=== PATIENT | male | born 1965 | race African-American/Black ===

== ENCOUNTER → 2017-03-08 | Outpatient (CLI) | payer MEDICARE, OTHER ==
[~2017-03-08] MED LIST: ALDACTONE100 MG PO; EPCLUSA 400 MG1 EACH PO; LASIX PO; LISINOPRIL-HCTZ1 T16 PO; NEURONTIN600 MG PO; OMEPRAZOLE20 M1 PO
--- NOTE | ~2017-03-08 | US5 ---
[facility] A Service of [facility] RADIOLOGY TEXT RESULTS PATIENT: JAMAICA BAZAN LOCATION: [place] : 65 UNIT #: [id number] AGE: [address]: VALERIE DILLARD SEX: M ORDER DR: [id number] [place], [place] [address] [id number] O MR#: [id number] Acc #: [id number] NAME: JAMAICA BAZAN : 1965 SEX: M STUDY DATE/TIME: 03/08/2017 10:41 UNIT: CGUS ROOM: STUDY DESCRIPTION: US Abdominal Complete Attending Physician: Valerie Dillard M.D. Referring Physician: Valerie Dillard M.D. Ordering Physician: Physician Non-Staff Primary Care Physician: [facility] MEDICAL IMAGING REPORT This report is preliminary unless electronic signature is present EXAM Abdominal ultrasound. INDICATION Hepatitis C. Observation for cirrhosis and hepatocellular carcinoma. PROCEDURE Bosch-scale and Doppler imaging of the abdomen. COMPARISON 11/22/2016 FINDINGS Pancreas obscured by bowel gas. Cholelithiasis. No gallbladder wall thickening. Left kidney measures 10.1 cm. Spleen measures 9.6 cm. Right kidney measures 10.3 cm. No hydronephrosis. The liver measures 15.4 cm has coarsened echotexture. No liver mass seen on submitted images. Common duct measures 3-4 mm. Cholelithiasis with several stones in the gallbladder. Submitted images abdominal aorta and inferior vena cava unremarkable. IMPRESSION 1. Coarsened hepatic echotexture in keeping with cirrhosis. No liver mass seen by ultrasound. 2. Spleen is normal in size. 3. Cholelithiasis. Dictated by... Aubrey Khoury M.D. THIS IS AN ELECTRONICALLY VERIFIED REPORT [facility] A Service of [facility] RADIOLOGY TEXT RESULTS PATIENT: JAMAICA BAZAN LOCATION: [facility] : 65 UNIT #: [id number] AGE: [address]: VALERIE DILLARD SEX: M ORDER DR: Aubrey Khoury M.D. at 03/09/2017 7:24 AM KATJA/ceasar TD: 03/08/2017 17:07 JOB #: [id number] MEDICAL IMAGING REPORT Page 1 of 1 COPY
== END | disposition home or self-care (01) ==
LOC: CGUS 10:24
DX: B18.2 Chronic viral hepatitis C (principal); K80.20 Calculus of gallbladder without cholecystitis without obstruction
CPT/HCPCS: 76700